=== PATIENT | female | born 1975 | race Caucasian/White ===

== ENCOUNTER → 2024-05-21 | Day surgery (SDC) | payer MEDICAID ==
[~2024-05-21] MED LIST: LIDOCAINE HCL 1% 10 MG/ML 10ML VIAL ONE; LIDOCAINE HCL/PF 1% 10 MG/ML 5ML VIAL ONE; SODIUM BICARBONATE 4% 2.4MEQ/5ML VIAL IV ONE
== END | disposition home or self-care (01) ==
LOC: RAD 08:23 → EDUNIT# 09:00
PROVIDERS: ATTEND Surgery Surgical Oncology
DX: C50.412 Malignant neoplasm of upper-outer quadrant of left female breast (principal); C50.811 Malignant neoplasm of overlapping sites of right female breast; Z79.899 Other long term (current) drug therapy; Z98.890 Other specified postprocedural states; Z88.8 Allergy status to other drugs, medicaments and biological substances
CPT/HCPCS: 19281; 19282; J3490 ×2; J2003; A4648

== ENCOUNTER 2024-05-24 08:36 | Day surgery (SDC) | payer MEDICAID ==
[~2024-05-24] VITALS: Ht 167.6 cm; Wt 83.5 kg
[~2024-05-24 08:36] MED LIST changes: +LACTATED RINGERS 1,000 ML IV SCH; -LIDOCAINE HCL 1% 10 MG/ML 10ML VIAL ONE; -LIDOCAINE HCL/PF 1% 10 MG/ML 5ML VIAL ONE; -SODIUM BICARBONATE 4% 2.4MEQ/5ML VIAL IV ONE
[2024-05-24 08:58] LABS: UCG KIT LOT# 865648; UCG SCREEN NEGATIVE
[2024-05-24] MEDS ORDERED: LIDOCAINE HCL/EPINEPHRINE 1%-EPI 1:100,000 20ML VIAL ONE ×2 (09:34→10:29)
[2024-05-24] MEDS ORDERED: BUPIVACAINE HCL/PF 0.5% (5MG/ML) 10ML ONE ×2 (09:35→10:29)
[2024-05-24] MEDS ORDERED: METHYLENE BLUE 50MG/10ML AMP IV ONE (09:35)
[2024-05-24] MEDS ORDERED: VANCOMYCIN HCL 1GM VIAL ONE (09:38)
[2024-05-24] MEDS ORDERED: LIDOCAINE HCL 1% 20ML VIAL ONE ×2 (09:41→10:20)
[2024-05-24] MEDS ORDERED: FENTANYL CITRATE/PF 50MCG/ML 2ML VIAL ONE (10:15)
[2024-05-24] MEDS ORDERED: PROPOFOL 200MG/20ML VIAL IV ONE (10:15)
[2024-05-24] MEDS ORDERED: MIDAZOLAM HCL 2 MG/2 ML VIAL ONE (10:20)
[2024-05-24] MEDS ORDERED: ROCURONIUM BROMIDE 10MG/ML VIAL 5ML IV ONE ×2 (10:41→13:07)
[2024-05-24] MEDS ORDERED: HYDROMORPHONE HCL/PF 2MG/ML INJ ONE (12:26)
[2024-05-24] MEDS ORDERED: LABETALOL 5MG/ML 4ML INJ IV PRN (13:00)
[2024-05-24] MEDS ORDERED: SUGAMMADEX SODIUM 200MG/2ML VIAL IV ONE (16:14)
[2024-05-24] MEDS: ONDANSETRON HCL 4MG/2ML INJ IV PRN (17:08)
[2024-05-24] MEDS: HYDROMORPHONE HCL/PF 1MG/ML INJ IV PRN (17:09)
[2024-05-24 18:24] VITALS: BP 120/57; PULSE 110; RESP 16
[2024-05-24] MEDS: MEPERIDINE HCL/PF 25MG/ML CPJ IV PRN (18:24)
[2024-05-24] MEDS: METOCLOPRAMIDE HCL 10MG/2ML VIAL IV NR (20:06)
[2024-05-24] MEDS: DEXAMETHASONE 4MG/ML 1ML VIAL IV NR (20:08)
== END 2024-05-24 21:20 | disposition home or self-care (01) ==
LOC: OR 08:36
PROVIDERS: ATTEND Surgery Surgical Oncology
DX: C50.211 Malignant neoplasm of upper-inner quadrant of right female breast (principal); C50.212 Malignant neoplasm of upper-inner quadrant of left female breast; C50.412 Malignant neoplasm of upper-outer quadrant of left female breast; N60.22 Fibroadenosis of left breast; N61.0 Mastitis without abscess; N64.89 Other specified disorders of breast; Z17.0 Estrogen receptor positive status [ER+]; Z17.21 Progesterone receptor positive status; Z79.899 Other long term (current) drug therapy; Z98.890 Other specified postprocedural states; Z88.8 Allergy status to other drugs, medicaments and biological substances
CPT/HCPCS: 38525; 19301; 81025; 82962; 88309; 88307; 76098; 88305; 78195; J3010; J3490 ×4; J1100; Q9968; J2765; J2250; J2405; J2704; J3370; J1171; J2175